=== PATIENT | male | born 1950 | race Caucasian/White ===

== ENCOUNTER 2019-06-25 18:41 | Emergency (ER) | payer BC, MEDICARE ==
--- NOTE | 2019-06-25 19:02 | EDM.PDOC ---
ED HPI GENERAL MEDICAL PROBLEM - General Chief Complaint: General Stated Complaint: SYNCOPE, LOW BLOOD PRESSURE Time Seen by Provider: 06/25/19 18:55 Source of Information: Reports: Patient, RN History Limitations: Reports: No Limitations - History of Present Illness INITIAL COMMENTS - FREE TEXT/NARRATIVE: 68 yr male presents with syncopal episode today. States he feels fine now. States he hasn't been eating or drinking as well today and has been busy doing random items around the cabin. There was a neighbor friend that came by and states he was diaphoretic. 75/43, 63/47, pulse was 63-68, he blacked out and collapsed, and not breathing for about 30 seconds, started CPR and sternal rub and pt came around and was responding. - Related Data Allergies Allergy/AdvReac Type Severity Reaction Status Date / Time No Known Allergies Allergy Verified 06/25/19 19:04 Home Meds: Home Meds Benazepril [Lotensin] 20 mg PO DAILY 06/25/19 [History] Meloxicam 7.5 mg PO DAILY 06/25/19 [History] Propranolol [Inderal] 40 mg PO Q8H 06/25/19 [History] ED ROS GENERAL - Review of Systems Review Of Systems: See Below Constitutional: Reports: Weakness HEENT: Reports: Other (blacked out, aroun 5pm) Respiratory: Reports: Other ( states he quit breathing briefly during this episode for a few seconds) Cardiovascular: Reports: Other (diaphoretic, when this syncope happened, hx of vasaovagal hypotension) GI/Abdominal: Reports: No Symptoms Musculoskeletal: Reports: No Symptoms Skin: Reports: Diaphoresis Neurological: Reports: Syncope, Weakness, Other (hx of vasovagal response) Psychiatric: Reports: No Symptoms ED EXAM, GENERAL - Physical Exam Exam: See Below Exam Limited By: No Limitations General Appearance: Alert, No Apparent Distress Ears: Hearing Grossly Normal Nose: Normal Inspection Throat/Mouth: Normal Inspection, Normal Voice, No Airway Compromise Head: Atraumatic, Normocephalic Neck: Normal Inspection, Supple, Non-Tender, Full Range of Motion Respiratory/Chest: No Respiratory Distress, Lungs Clear, Normal Breath Sounds Cardiovascular: Normal Peripheral Pulses, Regular Rate, Rhythm, No Edema GI/Abdominal: Normal Bowel Sounds, Soft, Non-Tender Extremities: Normal Inspection, Normal Range of Motion, Non-Tender Neurological: Alert, Oriented, Normal Cognition Psychiatric: Normal Affect, Normal Mood Skin Exam: Warm, Dry, Normal Color EKG INTERPRETATION EKG Date: 06/25/19 Rhythm: NSR Course - Orders/Labs/Meds Orders: Active Orders 24 hr Category Date Time Status EKG Documentation Completion [RC] ASDIRECTED Care 06/25/19 18:55 Ordered Labs: Laboratory Tests 06/25/19 06/25/19 06/25/19 Range/Units 19:00 19:00 19:00 WBC 12.4 H (4.0-11.0) K/uL RBC 4.61 (4.50-6.50) M/uL Hgb 14.6 (13.0-18.0) g/dL Hct 43.1 (40.0-54.0) % MCV 94 (76-96) fL MCH 31.7 (27.0-32.0) pg MCHC 33.9 (31.0-35.0) g/dL RDW 12.8 (11.0-16.0) % Plt Count 286 (150-400) K/uL MPV 9.6 (6.0-10.0) fL Neut % (Auto) 75.8 H (45.0-70.0) % Lymph % (Auto) 14.9 L (20.0-40.0) % [place] % (Auto) 7.5 (3.0-10.0) % Eos % (Auto) 1.4 (1.0-5.0) % Baso % (Auto) 0.4 (0.0-0.5) % Neut # (Auto) 9.39 H (2.00-7.50) K/uL Lymph # (Auto) 1.84 (1.50-4.00) K/uL [place] # (Auto) 0.93 H (0.20-0.80) K/uL Eos # (Auto) 0.17 (0.04-0.40) K/uL Baso # (Auto) 0.05 (0.02-0.10) K/uL Sodium 139 (136-145) mmol/L Potassium 4.7 (3.5-5.1) mmol/L Chloride 101 (98-107) mmol/L Carbon Dioxide 25.9 (21.0-32.0) mmol/L Anion Gap 16.8 H (5.0-15.0) mmol/L BUN 20 (8-26) mg/dL Creatinine 1.31 H (0.70-1.30) mg/dL Est Cr Clr Drug Dosing TNP Estimated GFR (MDRD) 55 L (>60) MLS/MIN BUN/Creatinine Ratio 15.3 (6-25) Glucose 100 (74-100) mg/dL Calcium 9.7 (8.5-10.1) mg/dL Troponin I < 0.017 (0.000-0.060) ng/mL - Re-Assessments/Exams Free Text/Narrative Re-Assessment/Exam: 06/25/19 19:23 CBC, BMP and troponins completed and EKG completed. Pt is feeling improved and no more feeling of blacking out. 06/25/19 19:53 EKG with NSR and left vesicular block. He does take Meloxicam daily , Inderal 40 mg tid and Lotensin daily. Departure - Departure Time of Disposition: 20:02 Disposition: Home, Self-Care 01 Condition: Good Clinical Impression: Syncopal episodes - Discharge Information *PRESCRIPTION DRUG MONITORING PROGRAM REVIEWED*: Not Applicable *COPY OF PRESCRIPTION DRUG MONITORING REPORT IN PATIENT SHARA: Not Applicable Forms: ED Department Discharge - My Orders Last 24 Hours: My Active Orders 06/25/19 18:55 EKG Documentation Completion [RC] ASDIRECTED - Assessment/Plan Last 24 Hours: My Active Orders 06/25/19 18:55 EKG Documentation Completion [RC] ASDIRECTED Plan: Syncopal event of unknown etiology. Change Inderal to 20 mg tid. He hasn't been taking the Inderal tid, but mostly daily. He takes this for essential tremors. The EKG shows NSR with left anterior fascicular block and no previous EKG in our record to compare to. BP 129/68 is lying down, standing was 139/78 , sitting was 138/74. No return of syncopal episode. Consider stopping Meloxicam, may try tylenol or Ibuprofen for the knee pain, and continue with lotensin daily. He doesn't take any cholesterol medication, but did take this in the past. He should monitor the BP. Will send referral to cardiology for him. Best phone number to reach him is [phone].
== END 2019-06-25 19:55 | disposition home or self-care (01) ==
LOC: LB.ED 18:41
DX: R55 Syncope and collapse (principal)
CPT/HCPCS: 36415; 80048; 84484; 85025; 93005; 99284; 99284-25

== ENCOUNTER 2023-04-22 10:21 | Emergency (ER) | payer MEDICARE ==
[2023-04-22 10:36] VITALS: BP 146/91; PULSE 59
== END 2023-04-22 11:43 | disposition home or self-care (01) ==
LOC: LB.ED 10:21
DX: S93.401A Sprain of unspecified ligament of right ankle, initial encounter (principal); R55 Syncope and collapse; E78.00 Pure hypercholesterolemia, unspecified; I10 Essential (primary) hypertension; Z87.891 Personal history of nicotine dependence; Z79.899 Other long term (current) drug therapy; X50.1XXA Overexertion from prolonged static or awkward postures, initial encounter; Y92.003 Bedroom of unspecified non-institutional (private) residence as the place of occurrence of the external cause
CPT/HCPCS: 73610-RT; 99283